=== PATIENT | male | born 1965 | race Caucasian/White ===

== ENCOUNTER 2016-10-05 08:56 | Emergency (ER) | payer MEDICAID, OTHER ==
[~2016-10-05] VITALS: Ht 172.7 cm; Wt 84.1 kg
[~2016-10-05 08:56] MED LIST: AMIT50TA12 PO; HAL05 PO
[2016-10-05 09:00] VITALS: BP 139/98; PULSE 94; RESP 20; O2SAT 97
[2016-10-05] MEDS ORDERED: BUSP30TA2 PO (09:13)
[2016-10-05] MEDS ORDERED: CLON0.1T PO (09:13)
[2016-10-05] MEDS ORDERED: CLON0.2T PO (09:13)
[2016-10-05] MEDS ORDERED: MIRT30TA PO (09:13)
--- NOTE | 2016-10-05 09:15 | ED.REPORT ---
HPI-Dyspnea / Wheezing Date of Service Oct 05, 2016 ED Provider: Gilberto Curry MD A 51 year old male with a history of smoking repair presents to the ED complaining of a cough and pressure while coughing. The pressure describes is when he coughs. This is accompanied by chest congestion and rhinorrhea. The cough began two to three weeks ago, and became productive with green sputum two days ago. He has been unable to smoke recently because of the cough. The pt denies fever, shortness of breath, nausea, vomiting, headache, sore throat, or bloody sputum. He also denies any history of asthma. Nursing Notes Stated Complaint: COUGH,CONGESTION Chief Complaint: Respiratory Complaints Nursing Notes Reviewed: Yes Allergies: Coded Allergies: No Known Allergies (Unverified Allergy, Unknown, 10/05/16) Scheduled Albuterol HFA (Proair HFA) 8.5 Gm Hfa.aer.ad 2 PUFFS INHALATION Q4H Azithromycin (Zithromax (Z-Nick)) 250 Mg Tablet 250 MG PO DIRECTED Take two tablets by mouth on day 1, then take one tablet daily on days 2 through 5. Buspirone (Buspirone) 30 Mg Tablet 30 MG PO BID Clonidine (Clonidine) 0.1 Mg Tablet 0.1 MG PO am Clonidine (Clonidine) 0.2 Mg Tablet 0.2 MG PO HS Haloperidol-Expunged Drug, Do Not Renew! (Haldol-Expunged Drug, Do Not Renew!) 0.5 Mg Tablet 0.5 MG PO BID Mirtazapine (Remeron) 30 Mg Tablet 30 MG PO HS Scheduled PRN Ibuprofen (Ibuprofen) 800 Mg Tablet 800 MG PO TID PRN PRN For Pain General Time Seen by MD: 09:06 Chief Complaint Cough Hx Obtained From: Patient Arrived By: Walk-in Sudden in Onset?: No Onset Occurred: More than a week ago... Symptom Duration: Since onset Recent Healthcare: No recent hospitalization, Recent doctor visit Similar Sx Previous: No Risk Factors Well's Criteria for PE Well's PE Score: 0-2 pts (low risk 3.6%) Past Medical History Past Medical History none reported Past Surgical History hernia repair Smoking History Current Every Day Smoker Social History Drug Use: THC Ambulatory Status Independent Review of Systems Review of Systems Note: chest congestion Constitutional: Denies: Fever Ears / Nose / Throat: Denies: Sore throat Respiratory: Reports: Prod cough, green, Denies: Shortness of breath Cardiovascular: Reports: Chest pain (lung pain with coughing) Musculoskeletal: Denies: Back pain, Neck pain Skin: Denies Rash Allergy / Immune: Denies: Rhinorrhea Complete sys rev & neg: except as marked. GI: Denies: Abdominal pain, Nausea, Vomiting Physical Exam Initial Vital Signs Vital Signs (First) Date Time Temp Pulse Resp B/P Pulse Ox O2 Delivery O2 Flow Rate FiO2 10/05/16 09:00 36.7 94 20 139/98 97 Room Air Initial VS: Reviewed General/Constitutional: Awake, Alert Neck: Atraumatic, Supple, Full range of motion Respiratory / Chest: Atraumatic, No respiratory distress coarse breath sounds bilaterally bilateral wheeze Cardiovascular: Heart rate NL, Regular rhythm, Heart sounds NL, No murmurs ENT: Atraumatic, Airway patent, Mucous membranes moist Abdomen: Atraumatic, Soft, Non-tender Back: Atraumatic, Full range of motion Lower Extremity / Pelvis / MS: Atraumatic, Full range of motion, No edema Skin: Atraumatic, Color NL, No rash, Warm, Dry Neurologic: Oriented X3, Speech NL, No motor deficits, No sensory deficits Head / Eyes: Atraumatic, Normocephalic, PERRL, EOMI no sinus tenderness Upper Extremity / MS: Atraumatic, Full range of motion Psychiatric: Affect NL, Mood NL Interpretation & Diagnostics X-Ray Chest Interpretation Chest Xray Interpretation: IMPRESSION: Scattered bibasilar atelectasis. No acute disease Dictated by: Dread Ron M.D. on 10/05/2016 at 10:10 Approved by: Dread Ron M.D. on 10/05/2016 at 10:11 Interpretation / Wet Read by: Interpret - Radiologist Re-Eval/Medical Decision Med Decision/Clinical Course 51-year-old smoker presenting complaining of cough, sore throat, congestion times several weeks. Vital signs stable. No risk factors PE. Well's score PE 0-2% low risk. Chest x-ray is clear. No chest pain. Symptoms consistent with bronchitis. Patient was given albuterol nebulizer and his wheezes resolved and he felt much better. We discharged home with azithromycin, albuterol inhaler and ibuprofen as needed. Return precautions given. Source of Hx: Old records Re-Evaluation/Progress : Time of Eval: 10:16 Patient Status: Condition improved Re-Evaluation/Progress Note: Pt rechecked, who is resting. He is informed of his radiology results and diagnosis. The plan for discharge is discussed. The pt understands and agrees with the plan. All questions are addressed at this time. Counseled Regarding: Diagnosis, Lab results, Need for follow-up, When/why to return to ED Discharge & Departure Impression: Primary Impression: Bronchitis Disposition: Home Discharge Condition All VS Reviewed: Yes Condition: Stable Patient Instructions: Acute Bronchitis (ED) Additional Instructions: Your x-ray indicates that you have bronchitis. Take Azithromycin and ibuprofen as directed. Follow up with your primary care physician for further evaluation. Return to the ED if you develop any new or worsening symptoms including chest pain, shortness of breath, or vomiting. Referrals: [facility] Scribe Attestation Portions of this note were transcribed by Dain Putnam I, Dr. Curry personally performed the history, physical exam and medical decision-making; I reviewed and confirmed the accuracy of the information in the transcribed note. Signed by: Stella Griffith, 10/05/16 and 09:38. copies to: [facility] Gilberto Curry MD Oct 05, 2016 09:15 DAIN PUTNAM Oct 05, 2016 09:16
[2016-10-05] MEDS ORDERED: Albuterol 2.5 mg/3 mL Inhalation Solution NEB ONE (09:40)
[2016-10-05 09:49] VITALS: PULSE 70; RESP 16; O2SAT 96
--- NOTE | 2016-10-05 10:11 | DRSVH ---
PROCEDURE: X-RAY CHEST ONE VIEW, PORTABLE ([id number]) INDICATIONS: cough TECHNIQUE: One view of the chest was acquired. COMPARISON: None. FINDINGS: Surgical changes and devices: None. Lungs and pleura: No pleural effusions or pneumothorax. Lungs are clear. Low lung volumes and scat tered bibasilar atelectasis Mediastinum: Mediastinal contours appear normal. Heart size is normal. Bones and chest wall: No suspicious bony lesions. Chronic appearing right rib fractures Overlying s oft tissues appear unremarkable. IMPRESSION: Scattered bibasilar atelectasis. No acute disease Dictated by: Dread Ron M.D. on 10/05/2016 at 10:10 Approved by: Dread Ron M.D. on 10/05/2016 at 10:11
[2016-10-05] MEDS ORDERED: IBUP800T28 PO (10:18)
[2016-10-05] MEDS ORDERED: AZIT250T4 PO (10:18)
[2016-10-05] MEDS ORDERED: ALBU8.5H2 INHALATION (10:19)
[2016-10-05 10:31] VITALS: BP 126/80; PULSE 97; RESP 18; O2SAT 92
== END 2016-10-05 10:19 | disposition home or self-care (01) ==
LOC: SED 08:56
DX: J40 Bronchitis, not specified as acute or chronic (principal); F17.200 Nicotine dependence, unspecified, uncomplicated; Z98.890 Other specified postprocedural states
CPT/HCPCS: 71010; 94664; 99284; J7613

== ENCOUNTER 2017-01-14 16:00 | Emergency (ER) | payer MEDICAID, OTHER ==
[~2017-01-14] VITALS: Ht 172.7 cm; Wt 76.4 kg
[~2017-01-14 16:00] MED LIST changes: +ALBU8.5H2 INHALATION; -AMIT50TA12 PO; +AZIT250T4 PO; +BUSP30TA2 PO; +CLON0.1T PO; +CLON0.2T PO; +IBUP800T28 PO; +MIRT30TA PO
[2017-01-14 16:10] VITALS: BP 129/95; PULSE 77; O2SAT 99
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
[2017-01-14] MEDS ORDERED: HYDR-4003 PO (17:25)
[2017-01-14] MEDS ORDERED: HYDROcodone-APAP 5-325 mg Tablet PO ONE (17:25)
[2017-01-14] MEDS ORDERED: IBUP800T28 PO (17:37)
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
[2017-01-14 17:51] VITALS: BP 126/92; PULSE 59; O2SAT 95
== END 2017-01-14 17:54 | disposition home or self-care (01) ==
LOC: SED 16:00 → EDBD 16:00 → SED 17:54
DX: S82.041A Displaced comminuted fracture of right patella, initial encounter for closed fracture (principal); V18.0XXA Pedal cycle driver injured in noncollision transport accident in nontraffic accident, initial encounter; Y93.55 Activity, bike riding; Y92.9 Unspecified place or not applicable; Y99.8 Other external cause status; F17.200 Nicotine dependence, unspecified, uncomplicated